=== PATIENT | male | born 1990 | race Two or more races ===

== ENCOUNTER 2018-04-28 15:09 | Emergency (ER) | payer OTHER ==
[~2018-04-28] VITALS: Ht 160 cm; Wt 59.0 kg
[2018-04-28 17:59] VITALS: BP 121/78
== END 2018-04-28 18:02 | disposition home or self-care (01) ==
LOC: ER 15:15
DX: L03.116 Cellulitis of left lower limb (principal); L03.115 Cellulitis of right lower limb; F17.210 Nicotine dependence, cigarettes, uncomplicated; F12.10 Cannabis abuse, uncomplicated; F15.10 Other stimulant abuse, uncomplicated; F11.10 Opioid abuse, uncomplicated

== ENCOUNTER 2018-12-18 01:58 | Emergency (ER) | payer OTHER ==
[~2018-12-18] VITALS: Ht 167.6 cm; Wt 68.0 kg
[2018-12-18 03:20] VITALS: BP 152/99
== END 2018-12-18 03:40 | disposition home or self-care (01) ==
LOC: ER 02:00
DX: S01.01XD Laceration without foreign body of scalp, subsequent encounter (principal); F17.210 Nicotine dependence, cigarettes, uncomplicated; F12.10 Cannabis abuse, uncomplicated; F15.10 Other stimulant abuse, uncomplicated; F11.10 Opioid abuse, uncomplicated; X58.XXXD Exposure to other specified factors, subsequent encounter